=== PATIENT | female | born 1945 ===

== ENCOUNTER 2023-04-13 10:47 | Outpatient (AMB) | payer OTHER, SELFPAY ==
[2023-04-13 10:56] VITALS: BP 102/60; PULSE 80; TEMP 36.3; BMI 21.5
--- NOTE | 2023-04-13 10:56 | A.OFFVIS_ITS ---
Intake Vital Signs 04/13/23 10:56 Height 5 ft 2 in Weight 117 lb 11.629 oz BMI 21.5 BP 102/60 Blood Pressure Location Rt brachial Position Sitting Pulse 80 Pulse Source Palpation Temp 97.3 F Temp Source Skin Intake Visit Reasons: SLE/osteoporosis Intake Note: New pt presents today for consult. Previously seen at [facility] Scientist Required: No Accompanied by: Daughter Allergies bupropion Adverse Reaction (Intermediate, Verified 04/13/23 11:08) Dizziness lisinopril Adverse Reaction (Intermediate, Verified 04/13/23 11:08) Facial Swelling budesonide [From Rhinocort Allergy] Adverse Reaction (Verified 04/13/23 11:08) Swelling Medication List - Last Reconciled 04/13/23 by Vane Velazco MD alendronate 70 mg PO QWEEK aspirin 81 mg PO DAILY atorvastatin 80 mg PO DAILY carvedilol 6.25 mg PO BID clonidine HCl 0.2 mg PO BEDTIME ergocalciferol (vitamin D2) 1,250 mcg PO QWEEK furosemide 20 mg PO DAILY hydroxychloroquine One tab daily 5 days a week and 2 tabs daily 2 days a week paroxetine HCl 20 mg PO DAILY triamterene-hydrochlorothiazid 37.5-25 mg 1 tab PO DAILY HPI HPI Comments History of Present Illness Details This is a 77-year-old female with a past medical history of discoid SLE, Raynaud's, who presents as a new patient. Her previous sash repairer left the practice. Patient states that she was diagnosed with discoid lupus in 1994. It was mostly managed with sun avoidance and occasional topical steroids. She was started on hydroxychloroquine 200 mg Twice daily [address] Dr. Carmona 2 years ago. He was also started on Fosamax by Dr. Carmona 2 years ago. Over the last year patient was found to have a large colonic polyp that was difficult to be removed by colonoscopy. She ended up having to have surgery for it. She had a CT chest for staging which showed a small nodule, a nodule was biopsied and according to patient's daughter it was inconclusive. Currently patient gets surveillance CT scans. Patient states that she is doing well overall. Her discoid lupus has been very well controlled recently. She denies any joint pain. Her mother had rheumatoid arthritis, she has a sister with rheumatoid arthritis and another sister with scleroderma. She has a grandson with autoimmune hepatitis. For few months patient had swelling of her left ring finger and the ring on her left ring finger had to be cut. She had not had any recurrence of such episodes. She denies any joint pain or swelling [facility] Medical History (Updated 04/13/23 @ 12:53 by Vane Velazco MD) Anemia Chronic kidney disease (CKD) Chronic pulmonary edema Colon cancer high risk Hypertension Major depressive disorder Orthopnea Osteoporosis Surgical History History of lung biopsy Hx of colonoscopy with polypectomy Hx of ovarian cystectomy Family History Mother Rheumatoid arthritis Sister Rheumatoid arthritis Sister Scleroderma Other Family history of arthritis Family history of diabetes mellitus Family history of scleroderma Social History Household Members: None Alcohol intake: current Alcohol intake frequency: a few times a week Alcohol type: wine Patient Tobacco Use Status: Former Tobacco user Current occupational status: retired Review of Systems [facility] Denies arthralgias Skin/Breast Denies rash Physical Exam Vital Signs: Last Vital Signs Temp 97.3 F 04/13/23 10:56 Pulse 80 04/13/23 10:56 BP 102/60 04/13/23 10:56 BMI result Body Mass Index 21.5 Const General: cooperative, healthy appearing and comfortable Nutritional Appearance: average body habitus Orientation/consciousness: patient oriented x3 Limitations: no limitations HEENT Head: Yes normocephalic and Yes atraumatic Mouth: moist mucous membranes Resp Effort & Inspection: normal respiratory effort and able to speak in complete sentences Cardio Rate: regular rate GI Inspection: No distended Palpation (GI): Soft to palpation and nontender Skin General skin exam: no rashes or lesions noted Neuro General: patient oriented x3 Extrem Other: Mild right wrist swelling and the ulnar side without any tenderness or pain with flexion and extension No left wrist pain swelling or tenderness. No pain with full flexion extension Bilateral bony enlargement of her index PIP is worse with some flexion contracture Normal nailfold capillaroscopy No knee pain with full flexion and extension Bilateral toe bunions worse on the left Results Reviewed Results Reviewed: Labs 06/2021? Scl 70/beta 2 glycoprotein IgG, IgM,/Macedo/GRAB JACK WORKER/Mariana-1/ACL IgG, IgM/ Anca/dsDNA/CCP all negative C3/C4 normal Aldolase/CPK normal SSA >8.0 SSB >8.0 RF +ve DEXA 2021 L-spine T-score 0.2? Right femoral neck T-score -2.4 Right total hip T-score -1.8 Left femoral neck T-score -2.5 Left total hip T-score -1.9 Assessment & Plan Assessment & Plan (1) Discoid lupus erythematosus: Comment: dx 1994. biopsy proven HCQ started 2020 effective Code(s): L93.0 - Discoid lupus erythematosus Plan: This is a 77-year-old female with a past medical history of discoid SLE who presents as a new patient. She used to see Dr. Carmona. According to Dr. Cao, patient had some features of SLE including leukopenias. Today patient is doing well. Her discoid lupus is in remission on hydroxychloroquine 200 mg Twice daily. Check labs to evaluate disease activity. Patient has lost some weight over the last 1-2 years. Reduce hydroxychloroquine to 200 mg 5 days a week and 400 mg 2 days a week Follow-up in 4 months (2) Long-term use of hydroxychloroquine: Code(s): Z79.899 - Other [place] [facility] (current) drug therapy Plan: Discussed risk of retinopathy associated with hydroxychloroquine. As mentioned above hydroxychloroquine dose was adjusted according to her weight. Referred patient to Ophthalmology (3) Raynaud phenomenon: Code(s): I73.00 - Raynaud's syndrome without gangrene Qualifiers: Raynaud?s-associated gangrene presence: without gangrene Qualified Code(s): I73.00 - Raynaud's syndrome without gangrene Plan: Has had Raynaud's for many years. Discussed general conservative measures for Raynaud's including keeping core and extremities temperature warm, wearing gloves, considering glove warmers and electric gloves if needed. Will re- evaluate patient in the colder winter months, can consider adding medication if warranted (4) Osteoporosis: Comment: DEXA 2021 L-spine T-score 0.2? Right femoral neck T-score -2.4 Right total hip T-score -1.8 Left femoral neck T-score -2.5 Left total hip T-score -1.9 Alendronate started 2020 Code(s): M81.0 - Age-related osteoporosis without current pathological fracture Qualifiers: Osteoporosis type: age-related Presence of current pathological fracture: without current pathological fracture Qualified Code(s): M81.0 - Age- related osteoporosis without current pathological fracture Plan: DEXA 2021 consistent with osteoporosis. Fosamax is well tolerated. Continue Fosamax 70 mg weekly. Repeat DEXA in 2023 Plan I spent 50 minutes reviewing patient's chart, evaluating patient, ordering diagnostic workup, counseling patient and documenting in the chart Orders: Orders Comprehensive Met. Panel Today M32.9 - Systemic lupus erythematosus, unspecified C Reactive Protein Today M32.9 - Systemic lupus erythematosus, unspecified Protein Creatinine Ratio, Ur Today M32.9 - Systemic lupus erythematosus, un specified Complete Blood Count Auto Diff Today M32.9 - Systemic lupus erythematosus, unspecified Erythrocyte Sedimentation Rate Today M32.9 - Systemic lupus erythematosus, unspecified Complement C3 Today M32.9 - Systemic lupus erythematosus, unspecified Complement C4 Today M32.9 - Systemic lupus erythematosus, unspecified Anti DNA DS Antibody Today M32.9 - Systemic lupus erythematosus, unspecified Immunofixation Pnl, Serum Today M32.9 - Systemic lupus erythematosus, unspecified Protein Electrophoresis, Serum Today M32.9 - Systemic lupus erythematosus, unspecified Sjogren's Antibodies Today M32.9 - Systemic lupus erythematosus, unspecified Hepatitis A,B,C Profile Today Z11.59 - Encounter for screening for other viral diseases UA w Microscopic Today M32.9 - Systemic lupus erythematosus, unspecified Cyclic Citrullinated Peptide Today M06.9 - Rheumatoid arthritis, unspecified Rheumatoid Factor Today M06.9 - Rheumatoid arthritis, unspecified Referrals Ophthalmology Referral Z79.899 - Other termite control representative (current) drug therapy Coding Level of Care Code New Pt Level 4 (76597) Diagnoses Discoid lupus erythematosus L93.0 Long-term use of hydroxychloroquine Z79.899 Raynaud phenomenon I73.00 Raynaud?s-associated gangrene presence: without gangrene Osteoporosis M81.0 Osteoporosis type: age-related Presence of current pathological fracture: without current pathological fracture
== END 2023-04-13 11:54 | disposition home or self-care (01) ==
PROVIDERS: PCP Family Medicine; Visit Provider Student in an Organized Health Care Education/Training Program
DX: L93.0 Discoid lupus erythematosus (principal); Z79.899 Other long term (current) drug therapy; I73.00 Raynaud's syndrome without gangrene; M81.0 Age-related osteoporosis without current pathological fracture
CPT/HCPCS: 99204

== ENCOUNTER → 2023-04-13 10:47 | Outpatient (BNVA) | payer OTHER, SELFPAY | PROVIDERS: PCP Family Medicine; Visit Provider Student in an Organized Health Care Education/Training Program | DX: L93.0 Discoid lupus erythematosus (principal); I73.00 Raynaud's syndrome without gangrene; M81.0 Age-related osteoporosis without current pathological fracture; Z79.899 Other long term (current) drug therapy | CPT/HCPCS: 99202 ==

== ENCOUNTER 2023-08-10 10:10 | Outpatient (AMB) | payer OTHER, SELFPAY ==
[2023-08-10 10:19] VITALS: BP 130/64; PULSE 76; BMI 22.9
--- NOTE | 2023-08-10 10:19 | A.OFFVIS_ITS ---
Intake Vital Signs 08/10/23 10:19 Height 5 ft 2 in Weight 125 lb 7.088 oz BMI 22.9 BP 130/64 Blood Pressure Location Rt brachial Position Sitting Pulse 76 Pulse Source Pulse Oximeter Intake Visit Reasons: Discoid Intake Note: Pt last seen 04/13/23 presents today for follow up and test results. Scallop Binder Required: No Accompanied by: Daughter Allergies bupropion Adverse Reaction (Intermediate, Verified 08/10/23 10:21) Dizziness lisinopril Adverse Reaction (Intermediate, Verified 08/10/23 10:21) Facial Swelling budesonide [From Rhinocort Allergy] Adverse Reaction (Verified 08/10/23 10:21) Swelling Medication List - Last Reconciled 08/10/23 by Vane Velazco MD alendronate 70 mg PO QWEEK aspirin 81 mg PO DAILY atorvastatin 80 mg PO DAILY carvedilol 6.25 mg PO BID clonidine HCl 0.2 mg PO BEDTIME cyanocobalamin (vitamin B-12) 1,000 mcg PO DAILY ergocalciferol (vitamin D2) 1,250 mcg PO QWEEK furosemide 20 mg PO DAILY hydroxychloroquine One tab daily 5 days a week and 2 tabs daily 2 days a week paroxetine HCl 20 mg PO DAILY triamterene-hydrochlorothiazid 37.5-25 mg 1 tab PO DAILY HPI HPI Comments History of Present Illness Details 77-year-old female with discoid lupus, R aynaud's who presents for follow-up. On hydroxychloroquine. She has had no new symptoms. Doing well overall. Continues to get Raynaud symptoms whenever she goes outside in the cold without gloves. Episodes of Raynaud's do not last long. Initial history: This is a 77-year-old female with a past medical history of discoid SLE, Raynaud's, who presents as a new patient. 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 Patient states that she was diagnosed with discoid lupus in 1994. It was mostly managed with sun avoidance and occasional topical steroids. She was started on hydroxychloroquine 200 mg Twice daily by Dr. Carmona 2 years ago. He was also started on Fosamax by Dr. Carmona 2 years ago. Over the last year patient was found to have a large colonic polyp that was difficult to be removed by colonoscopy. She ended up having to have surgery for it. She had a CT chest for staging which showed a small nodule, a nodule was biopsied and according to patient's daughter it was inconclusive. Currently patient gets surveillance CT scans. Patient states that she is doing well overall. Her discoid lupus has been very well controlled recently. She denies any joint pain. Her mother had rheumatoid arthritis, she has a sister with rheumatoid arthritis and another sister with scleroderma. She has a grandson with autoimmune hepatitis. For few months patient had swelling of her left ring finger and the ring on her left ring finger had to be cut. She had not had any recurrence of such episodes. She denies any joint pain or swelling [facility] Medical History Colon cancer high risk Orthopnea Osteoporosis Chronic kidney disease (CKD) Chronic pulmonary edema Hypertension Major depressive disorder Anemia Surgical History History of lung biopsy Hx of colonoscopy with polypectomy Hx of ovarian cystectomy Family History Mother Rheumatoid arthritis Sister Rheumatoid arthritis Sister Scleroderma Other Family history of arthritis Family history of diabetes mellitus Family history of scleroderma Social History Household Members: None Alcohol intake: current Alcohol intake frequency: a few times a week Alcohol type: wine Patient Tobacco Use Status: Former Tobacco user Current occupational status: retired Review of Systems [facility] [place]ralgias Skin/Breast Denies rash Physical Exam Vital Signs: Last Vital Signs Pulse 76 08/10/23 10:19 BP 130/64 08/10/23 10:19 BMI result Body Mass Index 22.9 Const General: cooperative, healthy appearing and comfortable Nutritional Appearance: average body habitus Orientation/consciousness: patient oriented x3 Limitations: no limitations HEENT Head: Yes normocephalic and Yes atraumatic Mouth: moist mucous membranes Resp Effort & Inspection: normal respiratory effort and able to speak in complete sentences Cardio Rate: regular rate GI Inspection: No distended Palpation (GI): Soft to palpation and nontender Skin General skin exam: no rashes or lesions noted Neuro General: patient oriented x3 Extrem Other: Mild right wrist swelling and the ulnar side without any tenderness or pain with flexion and extension No left wrist pain swelling or tenderness. No pain with full flexion extension Bilateral bony enlargement of her index PIPs with some flexion contracture Normal nailfold capillaroscopy No knee pain with full flexion and extension Bilateral toe bunions worse on the left Results Reviewed Results Reviewed: Labs 06/2021? Scl 70/beta 2 glycoprotein IgG, IgM,/Macedo/JOURNEYMAN MACHINIST/Mariana-1/ACL IgG, IgM/ Anca/dsDNA/CCP all negative C3/C4 normal Aldolase/CPK normal SSA >8.0 SSB >8.0 RF +ve DEXA 2021 L-spine T-score 0.2? Right femoral neck T-score -2.4 Right total hip T-score -1.8 Left femoral neck T-score -2.5 Left total hip T-score -1.9 Labs 07/2023? ESR 13 Labs 06/2023? Urinalysis unremarkable except for trace leukocytes? UpcR CBC unremarkable CMP unremarkable? C3 94 (90-207) C4 22.3 (17-52) CRP 0.7 (nl) SPEP and? immunofixation normal Hepatitis a IgM negative? Hepatitis-B surface antigen negative? Hepatitis-B core antibody negative? Hepatitis-C antibody negative SSA >8.0 SSB >8.0 DsDNA negative? Assessment & Plan Assessment & Plan (1) Discoid lupus erythematosus: Comment: dx 1994. biopsy proven +++SSA+++SSB HCQ started 2020 effective Code(s): L93.0 - Discoid lupus erythematosus Plan: This is a 77-year-old female with a past medical history of discoid SLE who presents for follow-up. She used to see Dr. Carmona in the past. According to Dr. Carmona, patient had some features of SLE including leukopenias. Today patient is doing well. Her discoid lupus is in remission on hydroxychloroquine. She has no other features of active SLE on exam today. There is no active synovitis. Lupus activity markers including C3, C4, dsDNA, are normal, urinalysis is unremarkable with normal UPCr ratio. Continue hydroxychloroquine to 200 mg 5 days a week and 400 mg 2 days a week Labs before next visit in 6 months (2) Long-term use of hydroxychloroquine: Code(s): Z79.899 - Other intermediate (current) drug therapy Plan: Discussed risk of retinopathy associated with hydroxychloroquine. Patient was evaluated by credit card clerk. Visual field test was sent over to me. Will request notes (3) Raynaud phenomenon: Code(s): I73.00 - Raynaud's syndrome without gangrene Qualifiers: Raynaud?s-associated gangrene presence: without gangrene Qualified Code(s): I73.00 - Raynaud's syndrome without gangrene Plan: Has had Raynaud's for many years. Discussed general conservative measures for Raynaud's including keeping core and extremities temperature warm, wearing gloves, considering glove warmers and electric gloves if needed. Patient continues to get Raynaud symptoms but only when she goes outside in the cold weather. Episodes are not prolonged. No need for medication at this point (4) Osteoporosis: Comment: DEXA 2021 L-spine T-score 0.2? Right femoral neck T-score -2.4 Right total hip T-score -1.8 Left femoral neck T-score -2.5 Left total hip T-score -1.9 Alendronate started 2020 Code(s): M81.0 - Age-related osteoporosis without current pathological fracture Qualifiers: Osteoporosis type: age-related Presence of current pathological fracture: without current pathological fracture Qualified Code(s): M81.0 - Age- related osteoporosis without current pathological fracture Plan: DEXA 2021 consistent with osteoporosis. Fosamax is well tolerated. Continue Fosamax 70 mg weekly. Repeat DEXA in 2023 Plan I spent 45 minutes reviewing patient's chart, evaluating patient, ordering diagnostic workup, counseling patient and documenting in the chart Orders: Orders Complete Blood Count Auto Diff 6 Months L93.0 - Discoid lupus erythematosus, Z79.899 - Other intermediate (current) drug therapy Comprehensive Met. Panel 6 Months L93.0 - Discoid lupus erythematosus, Z79.899 - Other long wall mining machine tender (current) drug therapy Complement C4 6 Months L93.0 - Discoid lupus erythematosus, Z79.899 - Other long wall mining machine tender (current) drug therapy C Reactive Protein 6 Months L93.0 - Discoid lupus erythematosus, Z79.899 - Other long wall mining machine tender (current) drug therapy Erythrocyte Sedimentation Rate 6 Months L93.0 - Discoid lupus erythematosus, Z79.899 - Other intermediate (current) drug therapy Anti DNA DS Antibody 6 Months L93.0 - Discoid lupus erythematosus, Z79.899 - Other long wall mining machine tender (current) drug therapy Complement C3 6 Months L93.0 - Discoid lupus erythematosus, Z79.899 - Other long wall mining machine tender (current) drug therapy Protein Creatinine Ratio, Ur 6 Months L93.0 - Discoid lupus erythematosus, Z79.899 - Other long wall mining machine tender (current) drug therapy UA w Microscopic 6 Months L93.0 - Discoid lupus erythematosus, Z79.899 - Other intermediate (current) drug therapy Coding Level of Care Code Est Pt Level 5 (54665) Diagnoses Discoid lupus erythematosus L93.0 Long-term use of hydroxychloroquine Z79.899 Raynaud's phenomenon without gangrene I73.00 Raynaud?s-associated gangrene presence: without gangrene Age-related osteoporosis without current pathological fracture M81.0 Osteoporosis type: age-related Presence of current pathological fracture: without current pathological fracture
== END 2023-08-10 10:46 | disposition home or self-care (01) ==
PROVIDERS: PCP Family Medicine; Visit Provider Student in an Organized Health Care Education/Training Program
DX: L93.0 Discoid lupus erythematosus (principal); Z79.899 Other long term (current) drug therapy; I73.00 Raynaud's syndrome without gangrene; M81.0 Age-related osteoporosis without current pathological fracture
CPT/HCPCS: 99215

== ENCOUNTER → 2023-08-10 10:10 | Outpatient (BNVA) | payer MEDICARE, SELFPAY | PROVIDERS: PCP Family Medicine; Visit Provider Student in an Organized Health Care Education/Training Program | DX: L93.0 Discoid lupus erythematosus (principal); M81.0 Age-related osteoporosis without current pathological fracture; I73.00 Raynaud's syndrome without gangrene; Z79.899 Other long term (current) drug therapy | CPT/HCPCS: 99212 ==

== ENCOUNTER 2024-02-09 10:08 | Outpatient (AMB) | payer MEDICARE, SELFPAY ==
--- NOTE | 2024-02-09 10:22 | A.OFFVIS_ITS ---
Vital Signs 02/09/24 10:23 Height 5 ft 2 in Weight 121 lb 4.068 oz BMI 22.2 BP 122/68 Blood Pressure Location Rt brachial Position Sitting Pulse 70 Pulse Source Pulse Oximeter Pulse Oximetry (%) 98 Oxygen Delivery Method Room Air Intake Visit Reasons: SLE/lm Intake Note: Pt seen today for SLE follow up. Manager Labor Delivery Required: No Accompanied by: Daughter Allergies bupropion Adverse Reaction (Intermediate, Verified 02/09/24 10:31) Dizziness lisinopril Adverse Reaction (Intermediate, Verified 02/09/24 10:31) Facial Swelling budesonide [From Rhinocort Allergy] Adverse Reaction (Verified 02/09/24 10:31) Swelling Medication List - Last Reconciled 02/09/24 by Vane Velazco MD alendronate 70 mg PO QWEEK aspirin 81 mg PO DAILY atorvastatin 80 mg PO DAILY carvedilol 6.25 mg PO BID clonidine HCl 0.2 mg PO BEDTIME cyanocobalamin (vitamin B-12) 1,000 mcg PO DAILY ergocalciferol (vitamin D2) 1,250 mcg PO QWEEK furosemide 20 mg PO DAILY hydroxychloroquine One tab daily 5 days a week and 2 tabs daily 2 days a week paroxetine HCl 20 mg PO DAILY triamterene-hydrochlorothiazid 37.5-25 mg 1 tab PO DAILY HPI Comments Details: 78-year-old female with discoid lupus, Raynaud's who presents for follow-up. On hydroxychloroquine. States that she had a mechanical fall a few weeks ago as she was going down the basement, she turned to turn on the lights and she fell down the stairs. She did not break any bones. She has noticed rash on her right anabaptist, she is worried about skin cancer. She has not been seen by a production team advisor. She is doing reasonably well otherwise. Daughter mentions that patient is due for a colonoscopy tomorrow Initial history: This is a 77-year-old female with a past medical history of discoid SLE, Raynaud's, who presents as a new patient. 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 Patient states that she was diagnosed with discoid lupus in 1994. It was mostly managed with sun avoidance and occasional topical steroids. She was started on hydroxychloroquine 200 mg Twice daily by Dr. Carmona 2 years ago. He was also started on Fosamax by Dr. Carmona 2 years ago. Over the last year patient was found to have a large colonic polyp that was difficult to be removed by colonoscopy. She ended up having to have surgery for it. She had a CT chest for staging which showed a small nodule, a nodule was biopsied and according to patient's daughter it was inconclusive. Currently patient gets surveillance CT scans. Patient states that she is doing well overall. Her discoid lupus has been very well controlled recently. She denies any joint pain. Her mother had rheumatoid arthritis, she has a sister with rheumatoid arthritis and another sister with scleroderma. She has a grandson with autoimmune hepatitis. For few months patient had swelling of her left ring finger and the ring on her left ring finger had to be cut. She had not had any recurrence of such episodes. She denies any joint pain or swelling [facility] Medical History (Updated 02/09/24 @ 12:42 by Vane Velazco MD) Colon cancer high risk Orthopnea Osteoporosis Chronic kidney disease (CKD) Chronic pulmonary edema Hypertension Major depressive disorder Anemia Surgical History History of lung biopsy Hx of colonoscopy with polypectomy Hx of ovarian cystectomy Family History Mother Rheumatoid arthritis Sister Rheumatoid arthritis Sister Scleroderma Other Family history of arthritis Family history of diabetes mellitus Family history of scleroderma Social History Household Members: None Alcohol intake: current Alcohol intake frequency: a few times a week Alcohol type: wine Patient Tobacco Use Status: Former Tobacco user Current occupational status: retired Review of Systems [facility] [place]ralgias and Denies stiffness Skin/Breast Reports rash Physical Exam Vital Signs: Last Vital Signs Pulse 70 02/09/24 10:23 BP 122/68 02/09/24 10:23 Pulse Ox 98 02/09/24 10:23 Oxygen Delivery Method Room Air 02/09/24 10:23 BMI result Body Mass Index 22.2 Const General: cooperative, healthy appearing and comfortable Nutritional Appearance: average body habitus Orientation/consciousness: patient oriented x3 Limitations: no limitations HEENT Head: Yes normocephalic and Yes atraumatic Mouth: moist mucous membranes Resp Effort & Inspection: normal respiratory effort and able to speak in complete sentences Auscultation: clear to auscultation bilaterally Cardio Rate: regular rate Rhythm: regular rhythm GI Inspection: No distended Palpation (GI): Soft to palpation and nontender Skin Other: Mildly erythematous slightly raised oval-shaped rash on her right temporal, mildly scaly Neuro General: patient oriented x3 Extrem Other: Mild right wrist swelling and the ulnar side without any tenderness or pain with flexion and extension No left wrist pain swelling or tenderness. No pain with full flexion extension Bilateral bony enlargement of her index PIPs with some flexion contracture Normal nailfold capillaroscopy No knee pain with full flexion and extension Bilateral toe bunions worse on the left Results Reviewed Results Reviewed: Labs 06/2021? 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 Right femoral neck T-score -2.4 Right total hip T-score -1.8 Left femoral neck T-score -2.5 Left total hip T-score -1.9 Labs 07/2023? ESR 13 Labs 06/2023? Urinalysis unremarkable except for trace leukocytes? UpcR CBC unremarkable CMP unremarkable? C3 94 (90-207) C4 22.3 (17-52) CRP 0.7 (nl) SPEP and? immunofixation normal Hepatitis a IgM negative? Hepatitis-B surface antigen negative? Hepatitis-B core antibody negative? Hepatitis-C antibody negative SSA >8.0 SSB >8.0 DsDNA negative? Assessment & Plan Assessment & Plan (1) Discoid lupus erythematosus: Comment: dx 1994. biopsy proven +++SSA+++SSB HCQ started 2020 effective Code(s): L93.0 - Discoid lupus erythematosus Category: Medical Plan: This is a 77-year-old female with a past medical history of discoid SLE who presents for follow-up. She used to see Dr. Carmona in the past. According to Dr. Carmona, patient had some features of SLE including leukopenias. On exam patient has a skin rash on her right anabaptist, ddx discoid lupus flare versus others Advised patient to take a picture of her skin rash, make an appointment with production team advisor, start triamcinolone acetonide cream, used twice daily for 1 week then use it very sparingly, discussed term use of steroid creams on face. She has no other features of active SLE on exam today. Continue hydroxychloroquine to 200 mg 5 days a week and 400 mg 2 days a week Labs before next visit in 6 months (2) Long-term use of hydroxychloroquine: Code(s): Z79.899 - Other snf (current) drug therapy Category: Medical Plan: Follow-up regularly with cap parts cutter. Dr. Avalos (3) Raynaud phenomenon: Code(s): I73.00 - Raynaud's syndrome without gangrene Category: Medical Qualifiers: Raynaud?s-associated gangrene presence: without gangrene Qualified Code(s): I73.00 - Raynaud's syndrome without gangrene Plan: Has had Raynaud's for many years. Discussed general conservative measures for Raynaud's including keeping core and extremities temperature warm, wearing gloves, considering glove warmers and electric gloves if needed. Patient continues to get Raynaud symptoms but only when she goes outside in the cold weather. Episodes are not prolonged. No need for medication at this point (4) Osteoporosis: Comment: DEXA 2021 L-spine T-score 0.2? Right femoral neck T-score -2.4 Right total hip T-score -1.8 Left femoral neck T-score -2.5 Left total hip T-score -1.9 Alendronate started 2020 Code(s): M81.0 - Age-related osteoporosis without current pathological fracture Category: Medical Qualifiers: Osteoporosis type: age-related Presence of current pathological fracture: without current pathological fracture Qualified Code(s): M81.0 - Age- related osteoporosis without current pathological fracture Plan: DEXA 2021 consistent with osteoporosis. Fosamax is well tolerated. Continue Fosamax 70 mg weekly. Repeat DEXA 07/2024 (5) Anemia: Code(s): D64.9 - Anemia, unspecified Category: Medical Qualifiers: Anemia type: unspecified type Qualified Code(s): D64.9 - Anemia, unspecified Plan: Mild anemia. Patient has a colonoscopy tomorrow Plan I spent 45 minutes reviewing patient's chart, evaluating patient, ordering diagnostic workup, counseling patient and documenting in the chart Orders: Orders XR DEXA axial skeleton 07/17/24 M81.0 - Age-related osteoporosis without current pathological fracture Complete Blood Count Auto Diff 6 Months M32.9 - Systemic lupus erythematosus, unspecified Erythrocyte Sedimentation Rate 6 Months M32.9 - Systemic lupus erythematosus, unspecified Vitamin D 25-OH (D2 and D3) 6 Months E55.9 - Vitamin D deficiency, unspecified Comprehensive Met. Panel 6 Months M32.9 - Systemic lupus erythematosus, unspecified C Reactive Protein 6 Months M32.9 - Systemic lupus erythematosus, unspecified Complement C3 6 Months M32.9 - Systemic lupus erythematosus, unspecified Anti DNA DS Antibody 6 Months M32.9 - Systemic lupus erythematosus, unspecified Complement C4 6 Months M32.9 - Systemic lupus erythematosus, unspecified Protein Creatinine Ratio, Ur 6 Months M32.9 - Systemic lupus erythematosus, unspecified UA w Microscopic 6 Months M32.9 - Systemic lupus erythematosus, unspecified Uric Acid 6 Months M10.9 - Gout, unspecified Medications: New triamcinolone acetonide 0.5% Use twice daily on affected area on face 1 week. Then use once daily only sparingly 15 grams 0RF Coding Level of Care Code Est Pt Level 5 (20137) Complex EM visit Add On G2211 Diagnoses Discoid lupus erythematosus L93.0 Long-term use of hydroxychloroquine Z79.899 Raynaud's phenomenon without gangrene I73.00 Raynaud?s-associated gangrene presence: without gangrene Age-related osteoporosis without current pathological fracture M81.0 Osteoporosis type: age-related Presence of current pathological fracture: without current pathological fracture Anemia, unspecified type D64.9 Anemia type: unspecified type
[2024-02-09 10:23] VITALS: BP 122/68; PULSE 70; O2SAT 98; BMI 22.2
== END 2024-02-09 10:55 | disposition home or self-care (01) ==
PROVIDERS: PCP Family Medicine; Visit Provider Student in an Organized Health Care Education/Training Program
DX: L93.0 Discoid lupus erythematosus (principal); Z79.899 Other long term (current) drug therapy; I73.00 Raynaud's syndrome without gangrene; M81.0 Age-related osteoporosis without current pathological fracture; D64.9 Anemia, unspecified
CPT/HCPCS: 99215; G2211

== ENCOUNTER → 2024-02-09 10:08 | Outpatient (BNVA) | payer MEDICARE, SELFPAY | PROVIDERS: PCP Family Medicine; Visit Provider Student in an Organized Health Care Education/Training Program | DX: L93.0 Discoid lupus erythematosus (principal); M81.0 Age-related osteoporosis without current pathological fracture; I73.00 Raynaud's syndrome without gangrene; D64.9 Anemia, unspecified; Z79.899 Other long term (current) drug therapy | CPT/HCPCS: 99212 ==

== ENCOUNTER 2024-08-21 10:34 | Outpatient (REF) | payer MEDICARE, SELFPAY ==
[2024-08-21 11:01] LABS: MANUAL DIFF FLAG NO
[2024-08-21 12:11] LABS: Basophils Absolute Auto 0.1 X10*3/uL (0.0-0.2); Basophils Percent Auto 0.8 % (0-2); Eosinophils Absolute Auto 0.2 X10*3/uL (0.0-0.4); Eosinophils Percent Auto 2.8 % (0-4); Hematocrit 33.1 % (37.0-47.0); Hemoglobin 11.1 g/dl (12.0-16.0); Imm Gran Abs Auto 0.04 X10*3/uL (0.00-0.03); Imm Gran Pct Auto 0.7 % (0.0-0.4); Lymphocytes Absolute Auto 1.4 X10*3/uL (1.2-4.9); Lymphocytes Percent Auto 23.7 % (20-40); Mean Corpuscular HGB Conc 33.5 g/dl (31.0-35.0); Mean Corpuscular Hemoglobin 32.2 pg (27.0-33.0); Mean Corpuscular Volume 95.9 fL (80.0-98.0); Mean Platelet Volume 10.2 fL (9.4-12.3); Monocytes Absolute Auto 0.7 X10*3/uL (0.1-1.2); Monocytes Percent Auto 11.4 % (2-11); Neutrophils Absolute Auto 3.7 x10*3/uL (2.0-8.3); Neutrophils Percent Auto 60.6 % (45-73); Platelet Count 192 X10*3/uL (160-400); Red Blood Count 3.45 X10*6/uL (4.20-5.50); Red Cell Distribution Width 12.6 % (11.0-16.0)
[2024-08-21 13:04] LABS: Erythrocyte Sedimentation Rate 18 MM/HR (0-20)
[2024-08-21 13:12] LABS: Alanine Aminotransferase 17 U/L (0-31); Albumin Level 3.8 g/dL (3.5-5.0); Alkaline Phosphatase 96 U/L (39-117); Anion Gap 9 (12-20); Aspartate Amino Transferase 38 U/L (5-31); Bilirubin Total 0.7 mg/dL (0.0-1.0); Blood Urea Nitrogen 19 mg/dL (9-16); Calcium 8.6 mg/dL (8.4-10.2); Carbon Dioxide 25 mmol/L (22-29); Chloride 106 mmol/L (96-108); Estimated Glomerular Filt Rate 46; Glucose Random 95 mg/dL (60-115); Sodium 136 mmol/L (135-145); Total Protein 7.1 g/dL (6.5-8.0)
[2024-08-21 13:38] LABS: Uric Acid 10.8 mg/dL (2.4-5.7)
[2024-08-22 09:48] LABS: Complement C3 109 mg/dL (83-193)
[2024-08-22 16:08] LABS: Anti DNA DS Antibody <1 IU/mL
[2024-08-25 15:24] LABS: Vitamin D 25-OH, D2 94 ng/mL; Vitamin D 25-OH, D3 <4 ng/mL; Vitamin D 25-OH, Total 94 ng/mL (30-100)
== END 2024-08-21 10:35 | disposition home or self-care (01) ==
LOC: HO.XRAY 10:34
PROVIDERS: Visit Provider Student in an Organized Health Care Education/Training Program
DX: L93.0 Discoid lupus erythematosus (principal); Z79.899 Other long term (current) drug therapy; M10.9 Gout, unspecified; E55.9 Vitamin D deficiency, unspecified
CPT/HCPCS: 36415; 80053; 82306; 84550; 85025; 85652; 86140; 86160; 86225

== ENCOUNTER 2024-08-23 09:50 | Outpatient (AMB) | payer MEDICARE, SELFPAY ==
--- NOTE | 2024-08-23 09:50 | MHC.OFFVIS ---
Vital Signs 08/23/24 09:55 Height 5 ft Weight 120 lb 2.431 oz BMI 23.5 BP 134/80 Blood Pressure Location Rt brachial Position Sitting Pulse 78 Pulse Source Pulse Oximeter Pulse Oximetry (%) 98 Oxygen Delivery Method Room Air Intake Visit Reasons: SLE Intake Note: Patient presents for SLE. Allergies bupropion Adverse Reaction (Intermediate, Verified 08/23/24 09:54) Dizziness lisinopril Adverse Reaction (Intermediate, Verified 08/23/24 09:54) Facial Swelling budesonide [From Rhinocort Allergy] Adverse Reaction (Verified 08/23/24 09:54) Swelling Medication List - Last Reconciled 08/23/24 by Vane Velazco MD alendronate 70 mg PO QWEEK aspirin 81 mg PO DAILY atorvastatin 80 mg PO DAILY carvedilol 6.25 mg PO BID clonidine HCl 0.2 mg PO BEDTIME cyanocobalamin (vitamin B-12) 1,000 mcg PO DAILY ergocalciferol (vitamin D2) 1,250 mcg PO QWEEK furosemide 20 mg PO DAILY hydroxychloroquine One tab daily 5 days a week and 2 tabs daily 2 days a week paroxetine HCl 20 mg PO DAILY triamcinolone acetonide 0.5% Use twice daily on affected area on face 1 week. Then use once daily only sparingly triamterene-hydrochlorothiazid 37.5-25 mg 1 tab PO DAILY HPI Comments Details: 78-year-old female with discoid lupus, Raynaud's who presents for follow-up. On hydroxychloroquine. She states that she has been doing reasonably well overall. No new complaints today. She states that she gets the rash on her right temporal intermittently and it improves with steroid cream. Initial history: This is a 77-year-old female with a past medical history of discoid SLE, Raynaud's, who presents as a new patient. 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 Patient states that she was diagnosed with discoid lupus in 1994. It was mostly managed with sun avoidance and occasional topical steroids. She was started on hydroxychloroquine 200 mg Twice daily by Dr. Carmona 2 years ago. He was also started on Fosamax by Dr. Carmona 2 years ago. Over the last year patient was found to have a large colonic polyp that was difficult to be removed by colonoscopy. She ended up having to have surgery for it. She had a CT chest for staging which showed a small nodule, a nodule was biopsied and according to patient's daughter it was inconclusive. Currently patient gets surveillance CT scans. Patient states that she is doing well overall. Her discoid lupus has been very well controlled recently. She denies any joint pain. Her mother had rheumatoid arthritis, she has a sister with rheumatoid arthritis and another sister with scleroderma. She has a grandson with autoimmune hepatitis. For few months patient had swelling of her left ring finger and the ring on her left ring finger had to be cut. She had not had any recurrence of such episodes. She denies any joint pain or swelling [facility] Medical History Colon cancer high risk Orthopnea Osteoporosis Chronic kidney disease (CKD) Chronic pulmonary edema Hypertension Major depressive disorder Anemia Surgical History History of lung biopsy Hx of colonoscopy with polypectomy Hx of ovarian cystectomy Family History Mother Rheumatoid arthritis Sister Rheumatoid arthritis Sister Scleroderma Other Family history of arthritis Family history of diabetes mellitus Family history of scleroderma Social History Household Members: None Alcohol intake: current Alcohol intake frequency: a few times a week Alcohol type: wine Patient Tobacco Use Status: Former Tobacco user Current occupational status: retired Review of Systems [employer] Denies arthralgias and Denies stiffness Skin/Breast Reports rash Physical Exam Vital Signs: Last Vital Signs Pulse 78 08/23/24 09:55 BP 134/80 08/23/24 09:55 Pulse Ox 98 08/23/24 09:55 Oxygen Delivery Method Room Air 08/23/24 09:55 BMI result Body Mass Index 23.5 Const General: cooperative, healthy appearing and comfortable Nutritional Appearance: average body habitus Orientation/consciousness: patient oriented x3 Limitations: no limitations HEENT Head: Yes normocephalic and Yes atraumatic Mouth: moist mucous membranes Resp Effort & Inspection: normal respiratory effort and able to speak in complete sentences Auscultation: clear to auscultation bilaterally Cardio Rate: regular rate Rhythm: regular rhythm GI Inspection: No distended Palpation (GI): Soft to palpation and nontender Skin Other: Rash on right temporal essentially resolved Neuro General: patient oriented x3 Extrem Other: No active synovitis today No left wrist pain swelling or tenderness. No pain with full flexion extension Bilateral bony enlargement of her index PIPs with some flexion contracture Normal nailfold capillaroscopy No knee pain with full flexion and extension Bilateral toe bunions worse on the left Assessment & Plan Assessment & Plan (1) Discoid lupus erythematosus: Comment: dx 1994. biopsy proven +++SSA+++SSB HCQ started 2020 effective Code(s): L93.0 - Discoid lupus erythematosus Category: Medical Plan: This is a 78-year-old female with discoid lupus presents for follow-up. Remains on hydroxychloroquine, discoid rash on right temporal resolved with steroid cream. She has no other features of active SLE on exam today. Labs unremarkable Continue hydroxychloroquine to 200 mg 5 days a week and 400 mg 2 days a week Labs before next visit in 6 months (2) Long-term use of hydroxychloroquine: Code(s): Z79.899 - Other penitentiary (current) drug therapy Category: Medical Plan: Follow-up regularly with pathology transcriptionist. Dr. Avalos. It seems that her last eye exam was in 2022. Advised patient to make an appointment with her pathology transcriptionist (3) Raynaud phenomenon: Code(s): I73.00 - Raynaud's syndrome without gangrene Category: Medical Qualifiers: Raynaud?s-associated gangrene presence: without gangrene Qualified Code(s): I73.00 - Raynaud's syndrome without gangrene Plan: Has had Raynaud's for many years. Discussed general conservative measures for Raynaud's including keeping core and extremities temperature warm, wearing gloves, considering glove warmers and electric gloves if needed. Patient continues to get Raynaud symptoms but only when she goes outside in the cold weather. Episodes are not prolonged. No need for medication at this point (4) Osteoporosis: Comment: DEXA 2021 L-spine T-score 0.2? Right femoral neck T-score -2.4 Right total hip T-score -1.8 Left femoral neck T-score -2.5 Left total hip T-score -1.9 Alendronate started 2020 Code(s): M81.0 - Age-related osteoporosis without current pathological fracture Category: Medical Qualifiers: Osteoporosis type: age-related Presence of current pathological fracture: without current pathological fracture Qualified Code(s): M81.0 - Age-related osteoporosis without current pathological fracture Plan: DEXA 2021 consistent with osteoporosis. Fosamax is well tolerated. She mentions that she had a repeat DEXA scan within the last 3 months at an outside facility. We will attempt to retrieve the report. For now Continue Fosamax 70 mg weekly. (5) Elevated uric acid in blood: Code(s): E79.0 - Hyperuricemia without signs of inflammatory arthritis and tophaceous disease Category: Medical Plan: Significantly elevated uric acid at 10.8 mg/dL, takes hydrochlorothiazide, patient's father and son both have gout. She denies any history suggestive of gouty arthritis, denies history of kidney stones. She has some enlargement of her her bilateral index PIPs, but there are no clear subcutaneous tophi noted. We will monitor patient for the development of tophi or any other gout manifestations. Start urate lowering therapy if needed Plan I spent 45 minutes reviewing patient's chart, evaluating patient, ordering diagnostic workup, counseling patient and documenting in the chart Orders: Orders Anti DNA DS Antibody 6 Months M32.9 - Systemic lupus erythematosus, unspecified Complete Blood Count Auto Diff 6 Months M32.9 - Systemic lupus erythematosus, unspecified Comprehensive Met. Panel 6 Months M32.9 - Systemic lupus erythematosus, unspecified Complement C3 6 Months M32.9 - Systemic lupus erythematosus, unspecified Complement C4 6 Months M32.9 - Systemic lupus erythematosus, unspecified C Reactive Protein 6 Months M32.9 - Systemic lupus erythematosus, unspecified Erythrocyte Sedimentation Rate 6 Months M32.9 - Systemic lupus erythematosus, unspecified Coding Level of Care Code Est Pt Level 5 (55712) Complex EM visit Add On G2211 Diagnoses Discoid lupus erythematosus L93.0 Long-term use of hydroxychloroquine Z79.899 Raynaud's phenomenon without gangrene I73.00 Raynaud?s-associated gangrene presence: without gangrene Age-related osteoporosis without current pathological fracture M81.0 Osteoporosis type: age-related Presence of current pathological fracture: without current pathological fracture Elevated uric acid in blood E79.0
[2024-08-23 09:55] VITALS: BP 134/80; PULSE 78; O2SAT 98; BMI 23.5
== END 2024-08-23 10:16 | disposition home or self-care (01) ==
LOC: HO.RHE 09:50
PROVIDERS: PCP Family Medicine; Visit Provider Student in an Organized Health Care Education/Training Program
DX: L93.0 Discoid lupus erythematosus (principal); Z79.899 Other long term (current) drug therapy; I73.00 Raynaud's syndrome without gangrene; M81.0 Age-related osteoporosis without current pathological fracture; E79.0 Hyperuricemia without signs of inflammatory arthritis and tophaceous disease
CPT/HCPCS: 99215; G2211

== ENCOUNTER → 2024-08-23 09:50 | Outpatient (BNVA) | payer MEDICARE, SELFPAY | PROVIDERS: PCP Family Medicine; Visit Provider Student in an Organized Health Care Education/Training Program | DX: L93.0 Discoid lupus erythematosus (principal); M81.0 Age-related osteoporosis without current pathological fracture; E79.0 Hyperuricemia without signs of inflammatory arthritis and tophaceous disease; I73.00 Raynaud's syndrome without gangrene; Z79.899 Other long term (current) drug therapy | CPT/HCPCS: 99212 ==

== ENCOUNTER 2025-02-28 11:00 | Outpatient (AMB) | payer MEDICARE, SELFPAY ==
--- NOTE | 2025-02-28 11:01 | A.OFFVIS_ITS ---
Vital Signs 02/28/25 11:07 Height 5 ft Weight 114 lb 3.191 oz BMI 22.3 BP 115/60 Blood Pressure Location Rt brachial Position Sitting Pulse 82 Pulse Source Pulse Oximeter Pulse Oximetry (%) 98 Oxygen Delivery Method Room Air Intake Visit Reasons: SLE Intake Note: Patient presents for SLE follow up. Allergies bupropion Adverse Reaction (Intermediate, Verified 02/28/25 11:05) Dizziness lisinopril Adverse Reaction (Intermediate, Verified 02/28/25 11:05) Facial Swelling budesonide (From Rhinocort Allergy) Adverse Reaction (Verified 02/28/25 11:05) Swelling Medication List - Last Reconciled 02/28/25 by Nadiya Zuniga MD alendronate 70 mg PO QWEEK aspirin 81 mg PO DAILY atorvastatin 80 mg PO DAILY carvedilol 6.25 mg PO BID cholecalciferol (vitamin D3) 25 mcg PO DAILY clonidine HCl 0.2 mg PO BEDTIME cyanocobalamin (vitamin B-12) 1,000 mcg PO DAILY furosemide 20 mg PO DAILY hydroxychloroquine One tab daily 5 days a week and 2 tabs daily 2 days a week paroxetine HCl 20 mg PO DAILY triamcinolone acetonide 0.5% Use twice daily on affected area on face 1 week. Then use once daily only sparingly triamterene-hydrochlorothiazid 37.5-25 mg 1 tab PO DAILY HPI Comments Details: Patient is a 79 y.o. female with HLD, HTN, Raynaud's phenomenon, biopsy proven discoid lupus, and osteoporosis here today for follow up Interval History: Patient last seen 08/23/[address] Velazco - on Hydroxychloroquine - Doing well - Small rashes that improved with steroid cream Today - Doing well - No new complaints Rheumatologic History: dx 1994. biopsy proven +++SSA+++SSB HCQ started 2020 effective Initial history: This is a 77-year-old female with a past medical history of discoid SLE, Raynaud's, who presents as a new patient. 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 Patient states that she was diagnosed with discoid lupus in 1994. It was mostly managed with sun avoidance and occasional topical steroids. She was started on hydroxychloroquine 200 mg Twice daily by Dr. Carmona 2 years ago. He was also started on Fosamax by Dr. Carmona 2 years ago. Over the last year patient was found to have a large colonic polyp that was difficult to be removed by colonoscopy. She ended up having to have surgery for it. She had a CT chest for staging which showed a small nodule, a nodule was biopsied and according to patient's daughter it was inconclusive. Currently patient gets surveillance CT scans. Patient states that she is doing well overall. Her discoid lupus has been very well controlled recently. She denies any joint pain. Her mother had rheumatoid arthritis, she has a sister with rheumatoid arthritis and another sister with scleroderma. She has a grandson with autoimmune hepatitis. For few months patient had swelling of her left ring finger and the ring on her left ring finger had to be cut. She had not had any recurrence of such episodes. She denies any joint pain or swelling Current Rheumatology Medication(s): Hydroxychloroquine 200mg daily x 5 days, 200mg bid x 2 days PFSH Medical History Colon cancer high risk Orthopnea Osteoporosis Chronic kidney disease (CKD) Chronic pulmonary edema Hypertension Major depressive disorder Anemia Surgical History History of lung biopsy Hx of colonoscopy with polypectomy Hx of ovarian cystectomy Family History Mother Rheumatoid arthritis Sister Rheumatoid arthritis Sister Scleroderma Other Family history of arthritis Family history of diabetes mellitus Family history of scleroderma Social History Household Members: None Alcohol intake: current Alcohol intake frequency: a few times a week Alcohol type: wine Patient Tobacco Use Status: Former Tobacco user Current occupational status: retired Review of Systems Const Details: Review of Systems Constitutional: Denies fever, chills, weight loss ENT: Denies vision changes, eye pain or eye redness, dental caries, dry mouth GI: Denies nausea, vomiting, diarrhea, abdominal pain, change in BM Pulm: Denies SOB, RODRIGUEZ, hemoptysis, wheezing Cards: Denies chest pain, palpitations Skin: Denies nail changes, photosensitivity, NURSERY RN: Denies headaches, weakness, paresthesias, recurrent falls MSK: as per HPI All other systems reviewed and are unremarkable except noted above Physical Exam Vital Signs: Last Vital Signs Pulse 82 02/28/25 11:07 BP 115/60 02/28/25 11:07 Pulse Ox 98 02/28/25 11:07 Oxygen Delivery Method Room Air 02/28/25 11:07 BMI result Body Mass Index 22.3 Vital signs reviewed Physical Examination CONSTITUITIONAL Patient alert and cooperative. Well appearing and in no apparent painful distress HEENT Conjunctiva and sclera clear. No lymphadenopathy. CHEST/RESPIRATORY SYSTEM Normal respiratory effort and able to speak in complete sentences. Clear to auscultation bilaterally. No crackles, rales, rhonchi, wheezes heard. CARDIAC SYSTEM Regular rate and rhythm. S1 and S2 heard no murmurs. Radial pulses intact bilaterally MSK Hands * Right Hand: Able to make a fist. No swelling or tenderness to palpation of these joints. * Left Hand: Able to make a fist. No swelling or tenderness to palpation of these joints. * Herbedens and bouchards nodes noted bilaterally Wrists * Right Wrist: Full ROM. 70 degrees of wrist flexion, 80 degrees of wrist extension. No swelling or TTP * Left Wrist: Full ROM. 70 degrees of wrist flexion, 80 degrees of wrist ext ension. No swelling or TTP Elbows * Right Elbow: Full ROM. No swelling or TTP. No TTP of the medial and lateral epicondyles * Left Elbow: Full ROM. No swelling or TTP. No TTP of the medial and lateral epicondyles Shoulders * Right shoulder: Full ROM. No swelling noted. No TTP of the AC joint, subacromial bursa or posterior shoulder * Left shoulder: Full ROM. No swelling noted. No TTP of the AC joint, subacromial bursa or posterior shoulder Knees * Right knee: Full ROM. No swelling noted. No TTP of the knee joint lie or pes anserine bursa * Left knee: Full ROM. No swelling noted. No TTP of the knee joint lie or pes anserine bursa. * Crepitations felt bilaterally Ankles * Right ankle: Good ankle dorsiflexion and plantar flexion. No swelling. No TTP of the ankle joint * Left ankle: Good ankle dorsiflexion and plantar flexion. No swelling. No TTP of the ankle joint Feet * Right foot: Negative squeeze test * Left foot: Negative squeeze test Tender points? * No tenderness to palpation of the bilateral trapezius, supraspinatus, anterior costochondral junctions, bilateral suboccipital muscle insertions SKIN No rashes Results Reviewed Results Reviewed: Laboratory Tests 08/21/24 11:00 WBC 6.0 RBC 3.45 L Hgb 11.1 L Hct 33.1 L Plt Count 192 ESR 18 Sodium 136 Potassium 4.0 Chloride 106 Carbon Dioxide 25 BUN 19 H Creatinine 1.14 AST 38 H ALT 17 Alkaline Phosphatase 96 C-Reactive Protein 0.40 25-OH Vitamin D Total 94 Laboratory Tests 08/21/24 11:00 Double Strand DNA Ab <1 Complement C3 109 Complement C4 24 DEXA 06/2024 AP Spine 1.094 Left total hip 0.706 Left femoral neck 0.578 Assessment & Plan Assessment & Plan (1) Discoid lupus erythematosus: Comment: dx 1994. biopsy proven +++SSA+++SSB HCQ started 2020 effective Code(s): L93.0 - Discoid lupus erythematosus Category: Medical Plan: #Discoid lupus Patient is a 79 y.o. female with biopsy-proven discoid lupus here today for follow up. No further discoid lupus rashes on Plaquenil and topical steroids. No evidence of active lupus at this time. Plan - Continue Hydroxychloroquine 200mg x 5 days a week then 200mg bid x 2 days a week - Topical triamcinolone prn - Labs today: CBC, CMP, ESR, CRP, C3, C4, dsDNA, UA, UPC - RTC 6 months (2) Osteoporosis: Comment: DEXA 2021. L-spine 0.2, Right femoral neck -2.4, Right total hip -1.8, Left femoral neck -2.5, Left total hip -1.9 DEXA 2023. AP Spine 1.094, Left total hip 0.706, Left femoral neck 0.578 Alendronate started 2020 Code(s): M81.0 - Age-related osteoporosis without current pathological fracture Category: Medical Qualifiers: Osteoporosis type: age-related Presence of current pathological fracture: without current pathological fracture Qualified Code(s): M81.0 - Age- related osteoporosis without current pathological fracture Plan: #Osteoporosis Patient with fibrosis on alendronate doing very well with last bone density showing improvement. Plan to continue alendronate for a total of 5 years. (3) Raynaud phenomenon: Code(s): I73.00 - Raynaud's syndrome without gangrene Category: Medical Qualifiers: Raynaud?s-associated gangrene presence: without gangrene Qualified Code(s): I73.00 - Raynaud's syndrome without gangrene Plan: #Raynaud's Phenomenon Patient with Raynaud's phenomenon without nailfold capillary changes Continue conservative measures (4) Long-term use of hydroxychloroquine: Code(s): Z79.899 - Other terminal operations manager (current) drug therapy Category: Medical Plan: #Long-term Use of Hydroxychloroquine Discussed with patient the risks and benefits of hydroxychloroquine in managing the rheumatic condition Benefits include: - Reduced pain, reduce mortality, maintenance of remission and reduction of flares Risks include: - GI upset, skin hyperpigmentation, retinal toxicity (especially after more than 5 years of use), myopathy Advised yearly ophthalmology visits Last ophthalmology visit: 1 year ago. New referral printed (5) Encounter for monitoring alendronate therapy: Code(s): Z51.81 - Encounter for therapeutic drug level monitoring; Z79.83 - [facility] (current) use of bisphosphonates Plan: #Long-term Use of Bisphosphonates Risks and benefits of bisphosphonates in the management of osteoporosis Benefits include improved bone density, decreased fracture risk Risks include atypical femoral fractures, GI upset, esophageal strictures Contraindicated in patients with a creatinine clearance < 30 to 35 ml/min Keep vitamin-D at least 35 ng/mL Plan I spent 35 minutes reviewing the record and labs, taking a history, examining the patient, discussing the treatment plan, ordering diagnostic work up and documenting in the medical record Orders: Referrals Ophthalmology Referral L93.0 - Discoid lupus erythematosus Medications: Changed From alendronate 70 mg PO QWEEK M81.0 - Age-related osteoporosis without current pathological fracture To alendronate 70 mg PO QWEEK 13 tabs 1RF 90 days M81.0 - Age-related osteoporosis without current pathological fracture From hydroxychloroquine One tab daily 5 days a week and 2 tabs daily 2 days a week L93.0 - Discoid lupus erythematosus To hydroxychloroquine One tab daily 5 days a week and 2 tabs daily 2 days a week 108 tabs 1RF 90 days L93.0 - Discoid lupus erythematosus Refilled cholecalciferol (vitamin D3) 25 mcg PO DAILY 90 caps 1RF triamcinolone acetonide 0.5% Use twice daily on affected area on face 1 week. Then use once daily only sparingly 15 grams 0RF Coding Level of Care Code Est Pt Level 4 (36128) Complex EM visit Add On G2211 Diagnoses Discoid lupus erythematosus L93.0 Age-related osteoporosis without current pathological fracture M81.0 Osteoporosis type: age-related Presence of current pathological fracture: without current pathological fracture Raynaud's phenomenon without gangrene I73.00 Raynaud?s-associated gangrene presence: without gangrene Long-term use of hydroxychloroquine Z79.899 Encounter for monitoring alendronate therapy Z51.81; Z79.83
[2025-02-28 11:07] VITALS: BP 115/60; PULSE 82; O2SAT 98; BMI 22.3
--- OUTSIDE RECORDS SUMMARY | 2025-02-28 11:55 | XMS_ITS | Encounter Summary ---
Author Organization [facility], Address [address] [place] [address] Phone Care Team Providers Care Advance Agent Name Role Phone Skip Roach Primary Care Provider [phone] Encounter Details Date Type Department Care Team (Late st Contact Info) Description 07/12/2024 Documentation Only [facility], [address] [place] [address] [address] [place] [address] [place] [id number] Social History Tobacco Use Types Packs/Day Years Used Date Smoking Tobacco: Never Assessed Comments Unknown Sex and Gender Information Value Date Recorded Sex Assigned at Not on file Legal Sex Female 10:01 AM EDT Gender Identity Not on file Sexual Orientation Not on file documented as of this encounter Plan of Treatment Not on file documented as of this encounter Visit Diagnoses Not on filedocumented in this encounter Care Teams Advance Agent Relationship Specialty Start Date End Date Skip Roach [address] [place] [address] PCP - General 08/31/24 documented as of this encounter
== END 2025-02-28 11:52 | disposition home or self-care (01) ==
LOC: HO.RHE 11:00
PROVIDERS: PCP Family Medicine; Visit Provider Student in an Organized Health Care Education/Training Program
DX: L93.0 Discoid lupus erythematosus (principal); M81.0 Age-related osteoporosis without current pathological fracture; I73.00 Raynaud's syndrome without gangrene; Z79.899 Other long term (current) drug therapy; Z51.81 Encounter for therapeutic drug level monitoring; Z79.83 Long term (current) use of bisphosphonates
CPT/HCPCS: 99214; G2211

== ENCOUNTER → 2025-02-28 11:00 | Outpatient (BNVA) | payer MEDICARE, SELFPAY | PROVIDERS: PCP Family Medicine; Visit Provider Student in an Organized Health Care Education/Training Program | DX: L93.0 Discoid lupus erythematosus (principal); Z51.81 Encounter for therapeutic drug level monitoring; M81.0 Age-related osteoporosis without current pathological fracture; I73.00 Raynaud's syndrome without gangrene; Z79.83 Long term (current) use of bisphosphonates; Z79.899 Other long term (current) drug therapy | CPT/HCPCS: 99212 ==